=== PATIENT | female | born 1975 ===

== ENCOUNTER 2025-04-06 07:45 | Inpatient (IN) | payer OTHER ==
[~2025-04-06] VITALS: Ht 157.5 cm; Wt 79.4 kg
[2025-04-06] MEDS ORDERED: SYNTHROID150 MCG PO (09:29)
[2025-04-06 09:30] VITALS: BP 150/89
[2025-04-06] MEDS ORDERED: COZAAR100 MG PO (09:30)
[2025-04-06 09:34] LABS: BASO % 0.5 % (0.1-1.2); EOS # 0.07 (0.04-0.54); EOS % 1.2 % (0.7-7.0); LYMPH # 1.66 (1.18-3.74); LYMPH % 27.7 % (19.3-53.1); MEAN PLATELET VOLUME 11.00 fl (9.4-12.4); MONO # 0.42 (0.24-0.82); MONO % 7.0 % (4.7-12.5); NEUT # 3.81 (1.56-6.13); NEUT % 63.6 % (34.0-71.1); RED CELL DISTRIBUTION WIDTH 13.1 % (11.6-14.4)
[2025-04-06 09:35] LABS: INR 1.0
[2025-04-06 10:39] LABS: ALT/SGPT 36.0 U/L (12-78); AST/SGOT 16.0 U/L (15-37); BILIRUBIN TOTAL 0.6 mg/dL (0.3-1.2); BUN CREA RATIO 25.0 (7.0-25.0); CREATININE SERUM 0.64 mg/dL (0.55-1.02); GFR 98.63; GLOBULINA 3.0 G/DL (2.4-3.5); GLUCOSE FASTING 96.0 mg/dL (65-100); HCG QUANTITATIVE 2.0 mUI/mL (1-3); OSMOLALITY SERUM 284.0 MOSM/KG (275-295)
[2025-04-06 10:49] LABS: URINE APPEARANCE Cloudy; URINE BILIRRUBIN Negative (NEGATIVE); URINE BLOOD Large; URINE COLOR Yellow; URINE GLUCOSE Negative (NEGATIVE); URINE KETONE Negative (NEGATIVE); URINE LEUKOCYTE Moderate; URINE NITRATE Positive; URINE UROBILINOGEN 0.2 E.U./dl
[2025-04-06 10:50] LABS: URINE CAST 8.06 uL (0.0-1.40); URINE EPITHELIAL CELLS 6.4 uL (0.0-38.8); URINE RBC 897.7 uL (0.0-20.8); URINE WBC 1690.8 uL (0.0-23.2)
[2025-04-06 11:19] LABS: URINE BACTERIA > 9821.5 uL (0.0-1933); URINE PROTEIN 300 (NEGATIVE)
[2025-04-06 11:20] LABS: URINE CRYSTALS FEW /HPF
[2025-04-10] MEDS ORDERED: METRONIDAZOLE/SODIUM CHLORIDE 500 MG/100 ML PIGGYBACK IV ONE ×2 (12:46→22:15)
[2025-04-10] MEDS ORDERED: CEFAZOLIN SODIUM 1,000 MG VIAL ONE ×2 (12:46→21:33)
[2025-04-10] MEDS ORDERED: POVIDONE-IODINE 118 ML BOTT TOP ONE (15:39)
[2025-04-10] MEDS ORDERED: VISTASEAL DUAL APPICATOR 1 EACH APPL TOP ONE (21:27)
[2025-04-10] MEDS ORDERED: THROMBIN,HU/FIBRINOGEN/CALCIUM 10 ML SYRINGE TOP ONE (21:28)
[2025-04-10] MEDS ORDERED: CEFAZOLIN SODIUM 1,000 MG VIAL IV ONE (22:15)
[2025-04-10] MEDS ORDERED: GABAPENTIN 300 MG CAPSULE PO SCH (22:22)
[2025-04-10] MEDS ORDERED: RINGERS SOLUTION,LACTATED 1,000 ML IV SCH (22:30)
[2025-04-10] MEDS ORDERED: OxyCODONE HCL 5 MG TABLET (ROXICODONE) PO PRN (22:30)
[2025-04-10] MEDS ORDERED: ONDANSETRON HCL 2 MG/ML VIAL IV PRN (22:30)
[2025-04-11] MEDS ORDERED: ACETAMINOPHEN 500 MG GEL..CAP PO SCH
[2025-04-11 01:20] VITALS: BP 111/75
[2025-04-11 06:31] LABS: BASO % 0.1 % (0.1-1.2); EOS # 0.00 (0.04-0.54); EOS % 0.0 % (0.7-7.0); LYMPH # 0.48 (1.18-3.74); LYMPH % 4.9 % (19.3-53.1); MEAN PLATELET VOLUME 10.80 fl (9.4-12.4); MONO # 0.39 (0.24-0.82); MONO % 4.0 % (4.7-12.5); NEUT # 8.81 (1.56-6.13); NEUT % 90.7 % (34.0-71.1); RED CELL DISTRIBUTION WIDTH 12.8 % (11.6-14.4)
[2025-04-11 08:00] VITALS: BP 128/69
[2025-04-11] MEDS ORDERED: NITROFURANTOIN MACROCRYSTAL 100 MG CAPSULE PO SCH (09:00)
== END 2025-04-11 11:43 | disposition home or self-care (01) | DRG 743 ==
LOC: SURH 04-10 07:00 → O/R 04-10 10:00 → OB/GYN 04-10 23:47
PROVIDERS: ADMIT Student in an Organized Health Care Education/Training Program; ATTEND Student in an Organized Health Care Education/Training Program
PROC: 0UT74ZZ Resection of Bilateral Fallopian Tubes, Percutaneous Endoscopic Approach (ICD-10-PCS; 2025-04-10)
PROC: 0DNW4ZZ Release Peritoneum, Percutaneous Endoscopic Approach (ICD-10-PCS; 2025-04-10)
PROC: 0TN74ZZ Release Left Ureter, Percutaneous Endoscopic Approach (ICD-10-PCS; 2025-04-10)
PROC: 0UDB7ZZ Extraction of Endometrium, Via Natural or Artificial Opening (ICD-10-PCS; 2025-04-10)
PROC: 8E0W4CZ Robotic Assisted Procedure of Trunk Region, Percutaneous Endoscopic Approach (ICD-10-PCS; 2025-04-10)
PROC: 4A1BXSH Monitoring of Gastrointestinal Vascular Perfusion using Indocyanine Green Dye, External Approach (ICD-10-PCS; 2025-04-10)
PROC: 0T788DZ Dilation of Bilateral Ureters with Intraluminal Device, Via Natural or Artificial Opening Endoscopic (ICD-10-PCS; 2025-04-10)
PROC: 0UT94ZZ Resection of Uterus, Percutaneous Endoscopic Approach (ICD-10-PCS; principal; 2025-04-10 07:00)
DX: D25.1 Intramural leiomyoma of uterus (principal); D25.2 Subserosal leiomyoma of uterus; D25.0 Submucous leiomyoma of uterus; N80.03 Adenomyosis of the uterus; N72 Inflammatory disease of cervix uteri